=== PATIENT | female | born 1950 | race Caucasian/White ===

== ENCOUNTER 2022-12-19 10:48 | Emergency (ER) | payer MEDICARE ==
[2022-12-19 12:10] LABS: HEMATOCRIT 38.2 % (34.3-46.0); HEMOGLOBIN 12.6 g/dL (11.2-15.5); MEAN CORPUSCULAR HEMOGLOBIN 28.2 pg (31.6-35.5); MEAN CORPUSCULAR VOLUME 85.5 fL (81.4-99.0); RED BLOOD CELL COUNT 4.47 M/uL (3.77-5.24); WHITE BLOOD CELL COUNT,WBC 6.4 K/uL (3.2-11.0)
[2022-12-19 12:27] LABS: INR 1.1; PROTHROMBIN TIME 11.3 sec (9.2-10.6)
[2022-12-19 12:36] LABS: A/G RATIO 0.9 (1.2-2.2); ALANINE AMINOTRANSFERASE,ALT 21 U/L (12-78); ALBUMIN 3.3 g/dL (3.4-5.0); ALKALINE PHOSPHATASE 101 U/L (46-116); ANION GAP 8.7 mmol/L (5.0-14.0); ASPARTATE AMNIOTRANSFERASE,AST 19 U/L (15-37); BILIRUBIN TOTAL 0.6 mg/dL (0.2-1.0); BLOOD UREA NITROGEN,BUN 19 mg/dL (7-18); CALCIUM 8.6 mg/dL (8.5-10.1); CARBON DIOXIDE,CO2 30 mmol/L (21-32); CHLORIDE,CL 104 mmol/L (100-108); EST CRCL DRUG DOSING (CG) 40.81 mL/min; ESTIMATED GFR 60 mL/min (>60); GLUCOSE RANDOM 187 mg/dL (74-106); POTASSIUM,K 4.7 mmol/L (3.6-5.2); SODIUM,NA 138 mmol/L (140-148)
[2022-12-19 13:20] VITALS: BP 120/71; PULSE 67
== END 2022-12-19 13:15 | disposition home or self-care (01) ==
LOC: JP.ED 10:48
DX: I48.91 Unspecified atrial fibrillation (principal); Z88.4 Allergy status to anesthetic agent; Z88.2 Allergy status to sulfonamides; Z88.8 Allergy status to other drugs, medicaments and biological substances; Z79.899 Other long term (current) drug therapy; Z79.01 Long term (current) use of anticoagulants
CPT/HCPCS: 36415; 80053; 83605; 84484; 85027; 85610; 99284

== ENCOUNTER 2023-09-26 01:49 | Emergency (ER) | payer MEDICARE ==
[2023-09-26] MEDS ORDERED: Sodium Chloride 0.9% 500 ML IV SCH (02:30)
[2023-09-26 02:35] LABS: BASOPHILS PERCENT AUTO 0.3 % (0.1-1.3); EOSINOPHILS ABSOLUTE AUTO 0.12 K/uL (0.00-0.40); EOSINOPHILS PERCENT AUTO 1.8 % (0.0-5.4); HEMATOCRIT 33.5 % (34.3-46.0); IMMATURE GRAN PERCENT AUTO 0.3 % (0.0-0.7); LYMPHOCYTES ABSOLUTE AUTO 1.89 K/uL (0.8-3.3); MEAN CORPUSCULAR HEMOGLOBIN 27.8 pg (31.6-35.5); MEAN CORPUSCULAR HGB CONC 32.8 g/dL (31.6-35.5); MEAN CORPUSCULAR VOLUME 84.8 fL (81.4-99.0); MONOCYTES PERCENT AUTO 11.9 % (3.3-12.6); NEUTROPHILS ABSOLUTE AUTO 3.89 K/uL (1.0-7.6); NEUTROPHILS PERCENT AUTO 57.7 % (40.0-78.1); PLATELET COUNT,PLT 150 K/uL (130-375); RED BLOOD CELL COUNT 3.95 M/uL (3.77-5.24); WHITE BLOOD CELL COUNT,WBC 6.7 K/uL (3.2-11.0)
[2023-09-26 02:37] LABS: BASOPHILS ABSOLUTE AUTO 0.02 K/uL (0.00-0.10); IMMATURE GRAN ABSOLUTE AUTO 0.02 K/uL (0.00-0.23)
[2023-09-26] MEDS: Sodium Chloride 0.9% 1,000 ML IV SCH (02:38)
[2023-09-26 03:04] LABS: ALANINE AMINOTRANSFERASE,ALT 19 U/L (12-78); ALBUMIN 3.5 g/dL (3.4-5.0); ALKALINE PHOSPHATASE 109 U/L (46-116); ASPARTATE AMNIOTRANSFERASE,AST 18 U/L (15-37); BILIRUBIN TOTAL 0.5 mg/dL (0.2-1.0); BLOOD UREA NITROGEN,BUN 20 mg/dL (7-18); CARBON DIOXIDE,CO2 29 mmol/L (21-32); CHLORIDE,CL 102 mmol/L (100-108); CREATININE 0.8 mg/dL (0.6-1.0); EST CRCL DRUG DOSING (CG) 52.58 mL/min; ESTIMATED GFR 78 mL/min (>60); GLUCOSE RANDOM 74 mg/dL (74-106); MAGNESIUM 1.9 mg/dL (1.8-2.4); POTASSIUM,K 4.2 mmol/L (3.6-5.2); PRO B-TYPE NATRIUR PEPT,BNPPRO 246 pg/mL (5-125); PROTEIN TOTAL,TP 7.2 g/dL (6.4-8.2); SODIUM,NA 138 mmol/L (140-148); T4 FREE 1.06 ng/dL (0.76-1.46); TROPONIN I HIGH SENSITIVITY 5.5 pg/mL (<=60.3)
[2023-09-26 03:05] LABS: ANION GAP 11.2 mmol/L (5.0-14.0)
[2023-09-26 04:03] LABS: APPEARANCE,URINE CLEAR (CLEAR); BILIRUBIN,URINE NEGATIVE (NEGATIVE); COLOR,URINE YELLOW (YELLOW); GLUCOSE,URINE NEGATIVE (NEGATIVE); KETONES,URINE NEGATIVE (NEGATIVE); LEUKOCYTE ESTERASE,URINE NEGATIVE (NEGATIVE); NITRITE,URINE NEGATIVE (NEGATIVE); OCCULT BLOOD,URINE NEGATIVE (NEGATIVE); PH,URINE 6.5 (5.0-8.0); PROTEIN,URINE NEGATIVE (NEGATIVE)
[2023-09-26 04:07] LABS: RBC,URINE 0-5 (0-5); WBC,URINE 0-5 (0-5)
[2023-09-26 04:08] LABS: AMORPHOUS SEDIMENT,URINE NOT SEEN; BACTERIA,URINE FEW; EPITHELIAL CELLS,URINE RARE; MUCUS,URINE NOT SEEN
[2023-09-26 04:38] VITALS: BP 134/57; PULSE 55
== END 2023-09-26 04:39 | disposition home or self-care (01) ==
LOC: JP.ED 01:49
DX: E10.649 Type 1 diabetes mellitus with hypoglycemia without coma (principal); I11.0 Hypertensive heart disease with heart failure; I50.9 Heart failure, unspecified; I25.10 Atherosclerotic heart disease of native coronary artery without angina pectoris; Z88.2 Allergy status to sulfonamides; Z88.8 Allergy status to other drugs, medicaments and biological substances; Z79.4 Long term (current) use of insulin; Z79.899 Other long term (current) drug therapy; Z86.16 Personal history of COVID-19; Z90.49 Acquired absence of other specified parts of digestive tract; Z88.4 Allergy status to anesthetic agent
CPT/HCPCS: 36415; 80053; 81001; 82947; 83605; 83735; 83880; 84439; 84484; 85025; 96360; 96361; 99284; 99285; J7030